=== PATIENT | male | born 1995 | race African-American/Black ===

== ENCOUNTER 2021-11-17 21:21 | Emergency (ER) | payer MEDICAID, OTHER ==
[~2021-11-17] VITALS: Ht 177.8 cm; Wt 74.8 kg
[2021-11-17] MEDS ORDERED: MORPHINE SULFATE INJECTION 2 MG/ML SYRG IM ONE (23:00)
[2021-11-17] MEDS ORDERED: PEN250T PO (23:13)
[2021-11-17] MEDS ORDERED: OXY5T GT (23:13)
[2021-11-17] MEDS ORDERED: MORPHINE SULFATE 4 MG/ML SYR/VIAL ONE (23:33)
[2021-11-18 00:08] VITALS: BP 133/71
== END 2021-11-18 00:10 | disposition home or self-care (01) ==
LOC: ER 21:23
DX: K08.89 Other specified disorders of teeth and supporting structures (principal); F17.210 Nicotine dependence, cigarettes, uncomplicated; Z79.2 Long term (current) use of antibiotics; Z79.899 Other long term (current) drug therapy; Z88.8 Allergy status to other drugs, medicaments and biological substances
CPT/HCPCS: 96372; 99283; J2270